=== PATIENT | female | born 1950 | race Caucasian/White ===

== ENCOUNTER 2024-03-13 21:29 | Inpatient (IN) ==
[2024-03-13 21:57] LABS: Basophils # (auto) 0.05 K/uL (0.00-0.20); Basophils % (auto) 0.7 %; Eosinophils # (auto) 0.12 K/uL (0.00-0.50); Eosinophils % (auto) 1.6 %; Hematocrit (blood only) 35.4 % (37.0-47.0); Hemoglobin 11.4 g/dl (12.0-16.0); Immature Granulocytes # (auto) 0.04 K/uL (0.01-0.20); Immature Granulocytes % (auto) 0.5 %; Lymphocytes % (auto) 32.3 %; Mean Corpuscular Hemoglobin 32.3 pg (25.0-34.0); Mean Corpuscular Hgb Conc 32.2 g/dL (32.0-36.0); Mean Corpuscular Volume 100.3 fL (80.0-100.0); Mean Platelet Volume 9.8 fL (9.4-12.4); Monocytes # (auto) 0.94 K/uL (0.11-0.59); Monocytes % (auto) 12.7 %; Neutrophils # (auto) 3.87 K/uL (1.40-6.50); Neutrophils % (auto) 52.2 %; Platelet Count 418 K/uL (130-400); RDW Coefficient of Variation 13.5 % (11.5-14.5); RDW Standard Deviation 49.5 fL (36.4-46.3); Red Blood Count 3.53 M/uL (4.20-5.40); White Blood Count 7.42 K/ul (4.8-10.8)
[2024-03-13 22:21] LABS: Albumin Globulin Ratio 1.4 (0.9-2); Albumin Level 4.2 gm/dl (3.4-5.0); BUN Creatinine Ratio 12.7 (10-20); Bilirubin,Total 1.1 mg/dl (0.2-1.0); Calcium 9.8 mg/dl (8.6-10.3); Creatinine Clr Calc Pharmacy 53.9 ml/min; Est GFR (African American) 85.5 ml/min; Est GFR (Non-African American) 73.7 ml/min; Potassium 4.1 mmol/L (3.5-5.1); Total Protein 7.2 gm/dl (6.0-8.3)
[2024-03-13 22:26] LABS: INR 0.9 (0.9-1.1); Partial Thromboplastin Ratio 0.9; Partial Thromboplastin Time 24 Seconds (21-31); Prothrombin Time 10.4 Seconds (9.0-12.0)
[2024-03-13 22:27] LABS: Troponin I High Sensitivity 5.5 pg/ml (0-14)
[2024-03-13 22:46] LABS: Adenovirus PCR Not Detected (NotDetected); Bordetella parapertussis PCR Not Detected (NotDetected); Bordetella pertussis PCR Not Detected (NotDetected); Chlamydia pneumoniae PCR Not Detected (NotDetected); Coronavirus 229E PCR Not Detected (NotDetected); Coronavirus CoV-2 (COVID19)PCR Not Detected (NotDetected); Coronavirus HKU1 PCR Not Detected (NotDetected); Coronavirus NL63 PCR Not Detected (NotDetected); Coronavirus OC43PCR Not Detected (NotDetected); Human Metapneumovirus PCR Not Detected (NotDetected); Influenza A PCR Not Detected (NotDetected); Influenza B PCR Not Detected (NotDetected); Mycoplasma pneumoniae PCR Not Detected (NotDetected); Parainfluenza Virus 1 PCR Not Detected (NotDetected); Parainfluenza Virus 2 PCR Not Detected (NotDetected); Parainfluenza Virus 3 PCR Not Detected (NotDetected); Parainfluenza Virus 4 PCR Not Detected (NotDetected); Respiratory Syncytial VirusPCR Not Detected (NotDetected); Rhinovirus/Enterovirus PCR Not Detected (NotDetected)
[2024-03-13 22:48] LABS: Magnesium 2.1 mg/dl (1.7-2.4)
[2024-03-13 23:04] LABS: Thyroid Stimulating Hormone 3.51 uIu/ml (0.300-4.500)
--- NOTE | 2024-03-13 23:06 | Emergency Department Note ---
History of Present Illness General Chief complaint: Illness Stated complaint: SOB,SWEATS,NAUSEA,HYPOTENSION,CHEST TIGHTNESS Time Seen by Provider: 03/13/24 22:07 History of Present Illness This 73-year-old female presents ER complaining of unintentional weight loss, dyspnea with minimal exertion and not feeling well for the past few months steadily getting worse. No history of heart failure. She follows with Dr. Vargas. Patient denies fever, chills, cough, congestion, leg pain or swelling. Home Medications Medication Instructions Recorded Confirmed Type clotrimazole-betamethasone 1 1 applic topical BID PRN Skin 12/15/21 03/13/24 History %-0.05 % topical cream Irritation cyclobenzaprine 5 mg tablet 5 mg PO TID PRN MUSCLE SPASMS 12/15/21 03/13/24 History duloxetine 60 mg capsule,delayed 60 mg PO DAILY 12/15/21 03/13/24 History release oxycodone 5 mg tablet 5 mg PO Q6H PRN Back Pain 12/15/21 03/13/24 History valacyclovir 1 gram tablet 1,000 mg PO TID PRN Cold Sores 12/15/21 03/13/24 History amlodipine 5 mg-olmesartan 20 mg 1 tab PO DAILY #90 tabs 02/15/23 03/13/24 Rx tablet metoprolol succinate 100 mg 100 mg PO DAILY #90 tabs 03/22/23 03/13/24 Rx tablet,extended release 24 hr cholecalciferol (vitamin D3) 25 25 mcg PO DAILY 03/13/24 03/13/24 History mcg (1,000 unit) capsule (Vitamin D3) cyanocobalamin (vitamin B-12) 1,000 mcg PO DAILY 03/13/24 03/13/24 History 1,000 mcg tablet (Vitamin B-12) Allergies Allergy/AdvReac Type Severity Reaction Status Date / Time haemophilus b polysac Allergy Intermediate FLU-LIKE Verified 03/13/24 23:13 conj-tetanus SYMPTOMS Penicillins Allergy Intermediate FLU-LIKE Verified 03/13/24 23:13 SYMPTOMS ranitidine [From Zantac] AdvReac Severe RESPIRATORY Verified 03/13/24 23:13 FAILURE/CARDIAC ARREST Past Med/Surg History Medical History Hyperlipidemia 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 Primary hypertension Hypothyroidism Social History Smoking Status: Former smoker Feels Safe at Home: Yes Review of Systems A total of 10 systems reviewed and were otherwise negative Physical Exam Vital Signs Vital Signs - 24 hr 03/13/24 21:30 03/13/24 21:59 03/13/24 21:59 Temperature 36.4 C L Temperature Source Temporal Artery Scan Pulse Rate 70 Pulse Rate [Right Radial] 58 L Pulse Rhythm Regular Pulse Rhythm [Right Radial] Pulse Strength Normal Pulse Strength [Right Radial] Respiratory Rate 20 18 Respiratory Effort / Characteristics Non-Labored Spontaneous Respiratory Depth Normal Respiratory Pattern Blood Pressure 155/78 H Blood Pressure [Left Arm] 173/96 H Blood Pressure Mean 103 Blood Pressure Mean [Left Arm] 121 Blood Pressure Position [Left Arm] Pulse Oximetry 92 94 94 Oxygen Delivery Method Room Air Room Air Room Air Sepsis Recent Fever Within 48 Hours No Sepsis New/Unexplained Change in Mental Status N/A Sepsis Action Taken by Nursing No Action Required 03/13/24 21:59 03/13/24 22:09 03/13/24 23:00 Temperature Temperature Source Pulse Rate 58 L 60 Pulse Rate [Right Radial] 67 Pulse Rhythm Pulse Rhythm [Right Radial] Regular Pulse Strength Pulse Strength [Right Radial] Normal Respiratory Rate 20 Respiratory Effort / Characteristics Non-Labored Spontaneous Respiratory Depth Normal Respiratory Pattern Regular Blood Pressure Blood Pressure [Left Arm] 143/70 H Blood Pressure Mean Blood Pressure Mean [Left Arm] 94 Blood Pressure Position [Left Arm] Pulse Oximetry 94 99 Oxygen Delivery Method Room Air Room Air Sepsis Recent Fever Within 48 Hours Sepsis New/Unexplained Change in Mental Status Sepsis Action Taken by Nursing 03/14/24 01:00 03/14/24 02:08 Temperature Temperature Source Pulse Rate 70 Pulse Rate [Right Radial] 69 Pulse Rhythm Pulse Rhythm [Right Radial] Regular Pulse Strength Pulse Strength [Right Radial] Normal Respiratory Rate 18 Respiratory Effort / Characteristics Non-Labored Spontaneous Respiratory Depth Normal Respiratory Pattern Regular Blood Pressure Blood Pressure [Left Arm] 146/74 H Blood Pressure Mean Blood Pressure Mean [Left Arm] 98 Blood Pressure Position [Left Arm] Lying Pulse Oximetry 93 Oxygen Delivery Method Room Air Sepsis Recent Fever Within 48 Hours Sepsis New/Unexplained Change in Mental Status Sepsis Action Taken by Nursing VITALS: Vitals are noted on the nurse's note and reviewed by myself. Vital signs stable. GENERAL: Pleasant elderly female, in no acute distress, nondiaphoretic, well- developed well-nourished. SKIN: Capillary reflex less than 2 seconds. HEENT: Normocephalic. PERRLA. EOMI. Nares patent. Mucous membranes moist. Neck is supple without nuchal rigidity. HEART: Regular rate and rhythm LUNGS: Clear to auscultation bilaterally without wheezes, rales or rhonchi. No retractions or accessory muscle use. ABDOMEN: Positive bowel sounds x 4. Normal tympanic percussion. Soft, nontender, without masses or organomegaly. Bustos sign negative. No guarding or rebound tenderness. no CVA tenderness MUSCULOSKELETAL: No gross musculoskeletal defects. NEURO: Patient was alert and oriented to person place and time. No focal neurological deficits. Course Administered Medications Discontinued Medications Albuterol (Albut/Ipratrop 3mg/0.5mg Neb 3 Ml Vial) 3 ml NEB NOW STA; Protocol Stop: 03/13/24 22:25 Last Admin: 03/13/24 23:46 Dose: 3 ml Documented By: SIGRID Dexamethasone (Dexamethasone Sod Inj 4 Mg/Ml Vial) 6 mg IV NOW STA Stop: 03/14/24 01:42 Last Admin: 03/14/24 02:07 Dose: 6 mg Documented By: SIGRID Furosemide (Furosemide 40 Mg/4 Ml Vial) 40 mg IV ONE ONE Stop: 03/13/24 23:39 Last Admin: 03/13/24 23:47 Dose: 40 mg Documented By: SIGRID Ceftriaxone Sodium (Rocephin) 1,000 mg in 50 mls @ 100 mls/hr IV NOW STA Stop: 03/14/24 01:23 Last Infusion: 03/14/24 01:40 Dose: Infused Documented By: Admin: 03/14/24 01:09 Dose: 100 mls/hr Documented By: SIGRID Ioversol (Optiray 320 125ml) 125 ml IV ONCE ONE Stop: 03/13/24 23:20 Last Admin: 03/13/24 23:19 Dose: 119 ml Documented By: FADUMO Medical Decision Making Medical Records Attestation: I reviewed the patient's medical records. Home Medications Current Medication List: was personally reviewed by me Laboratory Data Attestation: I reviewed the patient's lab results. 03/13/24 21:39 03/13/24 21:39 Lab Results 03/13/24 03/13/24 03/14/24 Range/Units 21:39 23:40 00:53 WBC 7.42 (4.8-10.8) K/ul RBC 3.53 L (4.20-5.40) M/uL Hgb 11.4 L (12.0-16.0) g/dl Hct 35.4 L (37.0-47.0) % MCV 100.3 H (80.0-100.0) fL MCH 32.3 (25.0-34.0) pg MCHC 32.2 (32.0-36.0) g/dL RDW Std Deviation 49.5 H (36.4-46.3) fL RDW Coeff of Anibal 13.5 (11.5-14.5) % Plt Count 418 H (130-400) K/uL MPV 9.8 (9.4-12.4) fL Immature Gran % (Auto) 0.5 % Neut % (Auto) 52.2 % Lymph % (Auto) 32.3 % [facility] % (Auto) 12.7 % Eos % (Auto) 1.6 % Baso % (Auto) 0.7 % Neut # (Auto) 3.87 (1.40-6.50) K/uL Lymph # (Auto) 2.40 (1.20-3.40) K/uL [facility] # (Auto) 0.94 H (0.11-0.59) K/uL Eos # (Auto) 0.12 (0.00-0.50) K/uL Baso # (Auto) 0.05 (0.00-0.20) K/uL Immature Gran # (Auto) 0.04 (0.01-0.20) K/uL PT 10.4 (9.0-12.0) Seconds INR 0.9 (0.9-1.1) APTT 24 (21-31) Seconds PTT Ratio 0.9 Sodium 138 (136-145) mmol/L Potassium 4.1 (3.5-5.1) mmol/L Chloride 102 (98-107) mmol/L Carbon Dioxide 31 (21-32) mmol/L Anion Gap 5 (3-11) BUN 10 (6-23) mg/dl Creatinine 0.79 (0.6-1.2) mg/dl Est Cr Clr Drug Dosing 53.9 ml/min Est GFR ( Amer) 85.5 ml/min Est GFR (Non-Af Amer) 73.7 ml/min BUN/Creatinine Ratio 12.7 (10-20) Glucose 100 H (70-99(Fasting)) mg/dl Calcium 9.8 (8.6-10.3) mg/dl Magnesium 2.1 (1.7-2.4) mg/dl Total Bilirubin 1.1 H (0.2-1.0) mg/dl AST 17 (13-39) U/L ALT 11 (7-52) U/L Alkaline Phosphatase 80 (34-104) U/L Troponin I High Sens 5.5 5.0 (0-14) pg/ml B-Natriuretic Peptide 152 H (0-100) pg/ml Total Protein 7.2 (6.0-8.3) gm/dl Albumin 4.2 (3.4-5.0) gm/dl Globulin 3.0 (2.5-4.0) gm/dl Albumin/Globulin Ratio 1.4 (0.9-2) TSH 3.510 (0.300-4.500) uIu/ml Urine Color Yellow Urine Appearance Cloudy A (Clear) Urine pH 6.5 (4.5-7.5) Ur Specific [place] > 1.045 H (1.000-1.030) Urine Protein Trace H (Negative) Urine Glucose (UA) Negative (Negative) Urine Ketones Negative (Negative) Urine Blood Negative (Negative) Urine Nitrite Negative (Negative) Urine Bilirubin Negative (Negative) Urine Urobilinogen Negative (Negative) Ur Leukocyte Esterase 1+ H (Negative) Urine WBC (Auto) 21-50 H (0-5) /hpf Urine RBC (Auto) 0-2 (0-2) /hpf U Hyaline Cast (Auto) 0-2 (0-2) /lpf U Epithel Cells (Auto) >20 H (0-2) /hpf Urine Bacteria (Auto) 3+ H (None Seen) Adenovirus (PCR) Not Detected (NotDetected) B. pertussis DNA (PCR) Not Detected (NotDetected) B.parapertussis DNA PCR Not Detected (NotDetected) C. pneumoniae DNA (PCR) Not Detected (NotDetected) Coronavirus OC43 (PCR) Not Detected (NotDetected) Coronavirus HKU1 (PCR) Not Detected (NotDetected) Coronavirus 229E (PCR) Not Detected (NotDetected) SARS-CoV-2 (PCR) Not Detected (NotDetected) Coronavirus NL63 (PCR) Not Detected (NotDetected) Human Metapneumovir PCR Not Detected (NotDetected) Influenza Type A (PCR) Not Detected (NotDetected) Influenza Type B (PCR) Not Detected (NotDetected) M. pneumoniae (PCR) Not Detected (NotDetected) Parainfluenza 1 (PCR) Not Detected (NotDetected) Parainfluenza 2 (PCR) Not Detected (NotDetected) Parainfluenza 3 (PCR) Not Detected (NotDetected) Parainfluenza 4 (PCR) Not Detected (NotDetected) RSV (PCR) Not Detected (NotDetected) Entero/Rhino (PCR) Not Detected (NotDetected) Imaging Data Attestation: I personally reviewed and interpreted this imaging study as follows: Radiologist's Impression: Abdomen/Pelvis CT 03/13/24 22:24 Exam(s): CT ABDOMEN + PELVIS With Contrast IV Amt: 119 ML OPTIRAY 320 EXAM: CT Abdomen and Pelvis With Intravenous Contrast CLINICAL HISTORY: Reason for exam: mid abd pain, unintentional wt loss. TECHNIQUE: Axial computed tomography images of the abdomen and pelvis with intravenous contrast. CTDI is 28.14 mGy and DLP is 1345.04 mGy-cm. Automated exposure control was utilized for the study. A dose lowering technique was utilized adhering to the principles of ALARA. CONTRAST: Patient received 119 ML OPTIRAY 320 of IV contrast COMPARISON: No relevant prior studies available. FINDINGS: Lung bases: Unremarkable. No mass. No consolidation. ABDOMEN: Liver: The liver is enlarged measuring 20 cm craniocaudad. No focal liver lesion is seen. Gallbladder and bile ducts: Unremarkable. No calcified stones. No ductal dilation. Pancreas: Unremarkable. No mass. No ductal dilation. Spleen: Unremarkable. No splenomegaly. Adrenals: Unremarkable. No mass. Kidneys and ureters: 4.3 cm simple cyst in the superior pole of the right kidney. No follow-up is required. No hydronephrosis. Stomach and bowel: See below. PELVIS: Appendix: The appendix is normal. Bowel loops are nondilated. There is diverticulosis of the left and sigmoid colon without evidence of acute diverticulitis. No acute inflammatory changes are seen involving the bowel. Bladder: The urinary bladder is decompressed and unremarkable. Reproductive: Unremarkable as visualized. ABDOMEN and PELVIS: Intraperitoneal space: The uterus has been removed. No free fluid is seen in the pelvis. No free air. Bones/joints: Mild degenerative changes throughout the spine. No acute fracture or subluxation is seen. Previous laminectomy is noted at L2-3, L3-4, and L4-5. Soft tissues: Unremarkable. 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 50% stenosis of the origin of the superior mesenteric artery. The infrarenal abdominal aorta is heavily calcified but nondilated. The inferior mesenteric artery is widely patent. Lymph nodes: Unremarkable. No enlarged lymph nodes. IMPRESSION: The appendix is normal. Bowel loops are nondilated. There is diverticulosis of the left and sigmoid colon without evidence of acute diverticulitis. No acute inflammatory changes are seen involving the bowel. The abdominal aorta is heavily calcified but nondilated. There is no aneurysm or dissection. 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 The inferior mesenteric artery is widely patent. Electronically signed by: Jesus Manuel Hernandez MD 03/14/24 00:23 AM Chest CTA 03/13/24 22:24 Exam(s): CTA CHEST IV Amt: 119 ML OPTIRAY 320 EXAM: CT Angiography Chest With Intravenous Contrast CLINICAL HISTORY: Reason for exam: PE. TECHNIQUE: Axial computed tomographic angiography images of the chest with intravenous contrast. CTDI is 28.02 mGy and DLP is 827.73 mGy-cm. Automated exposure control was utilized for the study. A dose lowering technique was utilized adhering to the principles of ALARA. MIP reconstructed images were created and reviewed. COMPARISON: No relevant prior studies available. FINDINGS: Pulmonary arteries: The pulmonary arterial tree is well opacified with contrast. No pulmonary embolism is identified. Aorta: The thoracic aorta is heavily calcified but nondilated. There is no aneurysm or dissection. Lungs: Scattered areas of hazy groundglass increased density throughout the central lungs bilaterally. There is pulmonary vascular congestion. Consider pulmonary edema/CHF. Mild central bronchial wall thickening suggests some component of bronchitis and/or underlying emphysema. No lobar consolidation is seen. Pleural space: Unremarkable. No significant effusion. No pneumothorax. Heart: The heart is mildly enlarged. No pericardial effusion is seen. No evidence of RV dysfunction. Bones/joints: Mild multilevel degenerative changes throughout the spine. No acute fracture or destructive bone lesion is seen. No dislocation. Soft tissues: Unremarkable. Lymph nodes: Unremarkable. No enlarged lymph nodes. Upper abdomen: 5 cm elevation of the right hemidiaphragm. IMPRESSION: 1. Scattered areas of hazy groundglass increased density throughout the central lungs bilaterally. There is pulmonary vascular congestion. Consider pulmonary edema/CHF. 2. Mild central bronchial wall thickening suggests some component of bronchitis and/or underlying emphysema. No lobar consolidation is seen. 3. The thoracic aorta is heavily calcified but nondilated. There is no aneurysm or dissection. 4. The pulmonary arterial tree is well opacified with contrast. No pulmonary embolism is identified. 5. The heart is mildly enlarged. No pericardial effusion is seen. Electronically signed by: Jesus Manuel Hernandez MD 03/14/24 00:29 AM MDM Narrative Prior records/ancillary studies reviewed and summarized above. Nursing notes reviewed. Additional history obtained from family. The patient's history was concerning for increasing shortness of breath, weakness, unintentional weight loss. Differential diagnosis: Etiologies such as heart failure, cancer, metabolic, infection, hypo/hyperglycemia, electrolyte abnormalities, cardiac sources, intracerebral event, toxicologic, neurologic, as well as others were entertained. Physical examination: As above. ER treatment provided: IV Lock An order was placed for continuous cardiac monitoring. The monitor shows a rate of 60-100 with a sinus rhythm per my interpretation. Nebulizer, Lasix, Rocephin On reassessment the patient felt better. Diagnostics interpretation by me: ECG: Ordered for weakness EKG: Normal sinus, normal intervals, no acute ST changes, T wave version aVL, rate of 66. Impression normal sinus rhythm independently interpreted by myself The labs Independently Interpreted by myself revealed mild anemia, euthyroid, negative troponin, negative [employer] Elevated BNP Imaging studies: Checks x-ray concerning for pulmonary congestion per my independent interpretation CTs as above Consultation: A consultation was placed with the hospitalist. The case was discussed and diagnostics were reviewed. The patient was evaluated in the ER for further treatment. Exam and history seem consistent with new onset heart failure. Patient is given Lasix. Urine appeared infected and patient was started antibiotics. Urine culture was placed. Patient is been having increasing more shortness of breath with minimal exertion. Medicine was consulted and the case was discussed. She will be evaluated for admission. Patient is agreeable. By the evaluation outlined above emergent etiologies such as electrolyte abnormalities, intracerebral event, toxologic, neurologic, abnormalities blood glucose, metabolic, as well as others were deemed relatively unlikely. The pt informed about the findings as listed above. All questions were answered and pleased with the treatment. The chart was completed utilizing [employer] voice recognition software. Grammatical errors, random word insertions, pronoun errors, and incomplete sentences are an occassional consequence of this system due to software limitations, ambient noise, and hardware issues. Any formal questions or concerns about the content, text, or information contained within the body of this dictation should be directly addressed to the physician social science research assistant for clarification. Impression & Plan New onset of congestive heart failure, Acute UTI Discharge Plan Visit Data Chief Complaint: Illness Stated Complaint: SOB,SWEATS,NAUSEA,HYPOTENSION,CHEST TIGHTNESS ED Provider: Benigno Ness ED Midlevel Provider: Ashanti Gale Discharge Problem: New onset of congestive heart failure, Acute UTI Patient Disposition: Admitted As Inpatient Condition: Good Forms Stand Alone Forms: FREEjit Prescriptions Prescriptions: No Action metoprolol succinate 100 mg tablet extended release 24 hr 100 mg PO DAILY Qty: 90 3RF clotrimazole-betamethasone 1-0.05 % cream 1 applic topical BID PRN (Reason: Skin Irritation) cyclobenzaprine 5 mg tablet 5 mg PO TID PRN (Reason: MUSCLE SPASMS) duloxetine 60 mg capsule,delayed release(DR/EC) 60 mg PO DAILY oxycodone 5 mg tablet 5 mg PO Q6H PRN (Reason: Back Pain) valacyclovir 1 gram tablet 1,000 mg PO TID PRN (Reason: Cold Sores) amlodipine-olmesartan 5-20 mg tablet 1 tab PO DAILY Qty: 90 3RF cyanocobalamin (vitamin B-12) [Vitamin B-12] 1,000 mcg Tablet 1,000 mcg PO DAILY cholecalciferol (vitamin D3) [Vitamin D3] 25 mcg (1,000 unit) Capsule 25 mcg PO DAILY Referrals Referrals: Riki Mitchell DO [Outside Practitioners] -
[2024-03-13] MEDS: OPTIRAY 320 125ml IV ONE (23:19)
[2024-03-13] MEDS: ALBUT/IPRATROP 3MG/0.5MG NEB 3 ML VIAL NEB STA (23:46)
[2024-03-13] MEDS: FUROSEMIDE 40 MG/4 ML VIAL IV ONE (23:47)
--- NOTE | 2024-03-14 00:24 | CT Scan Report ---
Exam(s): CT ABDOMEN + PELVIS With Contrast IV Amt: 119 ML OPTIRAY 320 EXAM: CT Abdomen and Pelvis With Intravenous Contrast CLINICAL HISTORY: Reason for exam: mid abd pain, unintentional wt loss. TECHNIQUE: Axial computed tomography images of the abdomen and pelvis with intravenous contrast. CTDI is 28.14 mGy and DLP is 1345.04 mGy-cm. Automated exposure control was utilized for the study. A dose lowering technique was utilized adhering to the principles of ALARA. CONTRAST: Patient received 119 ML OPTIRAY 320 of IV contrast COMPARISON: No relevant prior studies available. FINDINGS: Lung bases: Unremarkable. No mass. No consolidation. ABDOMEN: Liver: The liver is enlarged measuring 20 cm craniocaudad. No focal liver lesion is seen. Gallbladder and bile ducts: Unremarkable. No calcified stones. No ductal dilation. Pancreas: Unremarkable. No mass. No ductal dilation. Spleen: Unremarkable. No splenomegaly. Adrenals: Unremarkable. No mass. Kidneys and ureters: 4.3 cm simple cyst in the superior pole of the right kidney. No follow-up is required. No hydronephrosis. Stomach and bowel: See below. PELVIS: Appendix: The appendix is normal. Bowel loops are nondilated. There is diverticulosis of the left and sigmoid colon without evidence of acute diverticulitis. No acute inflammatory changes are seen involving the bowel. Bladder: The urinary bladder is decompressed and unremarkable. Reproductive: Unremarkable as visualized. ABDOMEN and PELVIS: Intraperitoneal space: The uterus has been removed. No free fluid is seen in the pelvis. No free air. Bones/joints: Mild degenerative changes throughout the spine. No acute fracture or subluxation is seen. Previous laminectomy is noted at L2-3, L3-4, and L4-5. Soft tissues: Unremarkable. 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 50% stenosis of the origin of the superior mesenteric artery. The infrarenal abdominal aorta is heavily calcified but nondilated. The inferior mesenteric artery is widely patent. Lymph nodes: Unremarkable. No enlarged lymph nodes. IMPRESSION: The appendix is normal. Bowel loops are nondilated. There is diverticulosis of the left and sigmoid colon without evidence of acute diverticulitis. No acute inflammatory changes are seen involving the bowel. The abdominal aorta is heavily calcified but nondilated. There is no aneurysm or dissection. 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 The inferior mesenteric artery is widely patent. Electronically signed by: Jesus Manuel Hernandez MD 03/14/24 00:23 AM
--- NOTE | 2024-03-14 00:29 | CT Scan Report ---
Exam(s): CTA CHEST IV Amt: 119 ML OPTIRAY 320 EXAM: CT Angiography Chest With Intravenous Contrast CLINICAL HISTORY: Reason for exam: PE. TECHNIQUE: Axial computed tomographic angiography images of the chest with intravenous contrast. CTDI is 28.02 mGy and DLP is 827.73 mGy-cm. Automated exposure control was utilized for the study. A dose lowering technique was utilized adhering to the principles of ALARA. MIP reconstructed images were created and reviewed. COMPARISON: No relevant prior studies available. FINDINGS: Pulmonary arteries: The pulmonary arterial tree is well opacified with contrast. No pulmonary embolism is identified. Aorta: The thoracic aorta is heavily calcified but nondilated. There is no aneurysm or dissection. Lungs: Scattered areas of hazy groundglass increased density throughout the central lungs bilaterally. There is pulmonary vascular congestion. Consider pulmonary edema/CHF. Mild central bronchial wall thickening suggests some component of bronchitis and/or underlying emphysema. No lobar consolidation is seen. Pleural space: Unremarkable. No significant effusion. No pneumothorax. Heart: The heart is mildly enlarged. No pericardial effusion is seen. No evidence of RV dysfunction. Bones/joints: Mild multilevel degenerative changes throughout the spine. No acute fracture or destructive bone lesion is seen. No dislocation. Soft tissues: Unremarkable. Lymph nodes: Unremarkable. No enlarged lymph nodes. Upper abdomen: 5 cm elevation of the right hemidiaphragm. IMPRESSION: 1. Scattered areas of hazy groundglass increased density throughout the central lungs bilaterally. There is pulmonary vascular congestion. Consider pulmonary edema/CHF. 2. Mild central bronchial wall thickening suggests some component of bronchitis and/or underlying emphysema. No lobar consolidation is seen. 3. The thoracic aorta is heavily calcified but nondilated. There is no aneurysm or dissection. 4. The pulmonary arterial tree is well opacified with contrast. No pulmonary embolism is identified. 5. The heart is mildly enlarged. No pericardial effusion is seen. Electronically signed by: Jesus Manuel Hernandez MD 03/14/24 00:29 AM
[2024-03-14 00:34] LABS: Appearance Urine Cloudy (Clear); Bacteria Urine Automated 3+ (None Seen); Bilirubin Urine Negative (Negative); Blood Urine Negative (Negative); Cast Urine Automated 0-2 /lpf (0-2); Color Urine Yellow; Epithelial Cell Urine Auto >20 /hpf (0-2); Glucose Urine UA Negative (Negative); Ketones Urine Negative (Negative); Leukocyte Esterase Urine 1+ (Negative); Nitrite Urine Negative (Negative); Protein Urine Trace (Negative); RBC Urine Automated 0-2 /hpf (0-2); Specific Gravity Urine > 1.045 (1.000-1.030); Urobilinogen Urine Negative (Negative); WBC Urine Automated 21-50 /hpf (0-5); pH Urine 6.5 (4.5-7.5)
[2024-03-14] MEDS: cefTRIAXone SODIUM 1,000 MG/50 ML BAG IV STA (01:09)
[2024-03-14] MEDS ORDERED: ALBUT/IPRATROP 3MG/0.5MG NEB 3 ML VIAL NEB PRN (01:41)
--- NOTE | 2024-03-14 01:45 | History & Physical Report ---
Date of Service March 14, 2024 Assessment & Plan (1) Dyspnea on exertion: (2) New onset of congestive heart failure: (3) Bronchitis: (4) Acute UTI: (5) Hypertension: (6) Hyperlipidemia: Plan Dyspnea on exertion/new onset CHF/bronchitis/history of COVID 19 7 weeks ago- Clinically patient looks reasonably good New onset CHF/hypertension- The patient will be admitted to telemetry for serial cardiac enzymes, serial EKG's, cardiac rhythm monitoring and a 2-D echocardiogram with Dopplers. Patient received furosemide 40 mg IV x 1 in the ED Hold on any further doses of furosemide Initial troponin 5.5, follow-up 5.0 Most recent dobutamine stress echo on 08/27/2022, with ejection fraction 65% Continue metoprolol succinate 100 mg daily, and amlodipine-on losartan 04/17, 1 p.o. daily Bronchitis/history of COVID-19- Reports being positive for COVID-19 about 7 weeks ago, which would coincide with gradually worsening shortness of breath and dyspnea on exertion BioFire test negative Give dexamethasone 6 mg IV now, then 4 mg IV every morning and follow response DuoNebs every 2 hours as needed Urinary tract infection- Follow urine culture and sensitivity Empiric ceftriaxone IV History of Present Illness Chief Complaint: The patient presents to the emergency department with a few months of gradually worsening shortness of breath and dyspnea on exertion, with variable weight loss and then weight gain, without change in diet or exercise pattern, all of which have worsened over the past few days Primary Care Provider: Jurgen Garrett DO The patient is a 73-year-old female with a past medical history including history of kidney stones, renal lesion, family history of CAD, chest pain syndrome, dyspnea exertion, lower extremity edema, hyperlipidemia, hypertension, muscle spasms, chronic back pain syndrome and cold sores. The patient presents to the emergency department symptoms as noted above. Patient does report having had a COVID 19 infection about 7 weeks ago. Allergies Allergy/AdvReac Type Severity Reaction Status Date / Time haemophilus b polysac Allergy Intermediate FLU-LIKE Verified 03/13/24 23:13 conj-tetanus SYMPTOMS Penicillins Allergy Intermediate FLU-LIKE Verified 03/13/24 23:13 SYMPTOMS ranitidine [From Zantac] AdvReac Severe RESPIRATORY Verified 03/13/24 23:13 FAILURE/CARDIAC ARREST Home Medications Medication Instructions Recorded Confirmed Type clotrimazole-betamethasone 1 1 applic topical BID PRN Skin 12/15/21 03/13/24 History %-0.05 % topical cream Irritation cyclobenzaprine 5 mg tablet 5 mg PO TID PRN MUSCLE SPASMS 12/15/21 03/13/24 History duloxetine 60 mg capsule,delayed 60 mg PO DAILY 12/15/21 03/13/24 History release oxycodone 5 mg tablet 5 mg PO Q6H PRN Back Pain 12/15/21 03/13/24 History valacyclovir 1 gram tablet 1,000 mg PO TID PRN Cold Sores 12/15/21 03/13/24 History amlodipine 5 mg-olmesartan 20 mg 1 tab PO DAILY #90 tabs 02/15/23 03/13/24 Rx tablet metoprolol succinate 100 mg 100 mg PO DAILY #90 tabs 03/22/23 03/13/24 Rx tablet,extended release 24 hr cholecalciferol (vitamin D3) 25 25 mcg PO DAILY 03/13/24 03/13/24 History mcg (1,000 unit) capsule (Vitamin D3) cyanocobalamin (vitamin B-12) 1,000 mcg PO DAILY 03/13/24 03/13/24 History 1,000 mcg tablet (Vitamin B-12) Past Med/Surg History Medical History Hyperlipidemia 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 Primary hypertension Hypothyroidism Social History Smoking Status: Former smoker Feels Safe at Home: Yes Review of Systems Review of Systems: The patient denies chest pain, palpitations, cough, lower extremity swelling, sore throat, fevers, chills, sweats, nausea, vomiting, diarrhea , constipation, abdominal pain, pelvic pain, blood in urine or stool, dysuria, urinary frequency or urgency, lightheadedness, dizziness, headache, memory loss, loss of consciousness, rash, abnormal bruising or bleeding, imbalance, focal weakness, numbness or tingling in arms or legs, generalized arthralgias or myalgias, back or neck pain, or night sweats. The review of systems is otherwise negative other than for that already noted above, and at least 10 systems have been reviewed. Physical Exam Physical Exam: The patient is awake, alert and oriented 3, well developed and well nourished, normocephalic and atraumatic, lying in bed and in no acute distress. HEENT--PERRL, EOMI, mucous membranes and oropharynx normal Neck--supple. No JVD. No bruits. Thyroid normal, trachea midline, no adenopathy. Heart--normal S1 and S2. No murmurs, rubs or gallops. Lungs--coarse breath sounds bilaterally, no respiratory distress, no accessory muscle use. Abdomen--normal bowel sounds and soft. Nontender. Nondistended, no hernias or masses, no organomegaly. Extremities--no cyanosis or clubbing. No edema. Dermatologic--normal skin turgor, normal color, no abnormal lymph nodes, no rash. Neurologic--cranial nerves II through XII grossly intact. Rheumatologic--normal range of motion. Psychiatric--normal affect. Results & Data Results & Data Vital Signs (Past 12 Hours) Vital Signs Temp Pulse Pulse Resp BP BP Pulse Ox 03/13/24 23:00 67 20 143/70 H 99 03/13/24 22:09 60 03/13/24 21:59 58 L 94 03/13/24 21:59 94 03/13/24 21:59 58 L 18 173/96 H 94 03/13/24 21:30 36.4 C L 70 20 155/78 H 92 O2 Del Method 03/13/24 23:00 Room Air 03/13/24 22:09 03/13/24 21:59 Room Air 03/13/24 21:59 Room Air 03/13/24 21:59 Room Air 03/13/24 21:30 Room Air Laboratory Results Laboratory Results WBC 7.42 K/ul (4.8-10.8) 03/13/24 21:39 RBC 3.53 M/uL (4.20-5.40) L 03/13/24 21:39 Hgb 11.4 g/dl (12.0-16.0) L 03/13/24 21:39 Hct 35.4 % (37.0-47.0) L 03/13/24 21:39 MCV 100.3 fL (80.0-100.0) H 03/13/24 21:39 MCH 32.3 pg (25.0-34.0) 03/13/24 21:39 MCHC 32.2 g/dL (32.0-36.0) 03/13/24 21: RDW Std Deviation 49.5 fL (36.4-46.3) H 03/13/24 21:39 RDW Coeff of Anibal 13.5 % (11.5-14.5) 03/13/24 21:39 Plt Count 418 K/uL (130-400) H 03/13/24 21:39 MPV 9.8 fL (9.4-12.4) 03/13/24 21: Immature Gran % (Auto) 0.5 % 03/13/24 21: Neut % (Auto) 52.2 % 03/13/24 21:39 Lymph % (Auto) 32.3 % 03/13/24 21:39 [place] % (Auto) 12.7 % 03/13/24 21:39 Eos % (Auto) 1.6 % 03/13/24 21: Baso % (Auto) 0.7 % 03/13/24 21:39 Neut # (Auto) 3.87 K/uL (1.40-6.50) 03/13/24 21: Lymph # (Auto) 2.40 K/uL (1.20-3.40) 03/13/24 21:39 [place] # (Auto) 0.94 K/uL (0.11-0.59) H 03/13/24 21:39 Eos # (Auto) 0.12 K/uL (0.00-0.50) 03/13/24 21: Baso # (Auto) 0.05 K/uL (0.00-0.20) 03/13/24 21: Immature Gran # (Auto) 0.04 K/uL (0.01-0.20) 03/13/24 21: PT 10.4 Seconds (9.0-12.0) 03/13/24 21:39 INR 0.9 (0.9-1.1) 03/13/24 21:39 APTT 24 Seconds (21-31) 03/13/24 21:39 PTT Ratio 0.9 03/13/24 21: Sodium 136 mmol/L (136-145) 03/14/24 00:53 Potassium 3.8 mmol/L (3.5-5.1) 03/14/24 00:53 Chloride 100 mmol/L (98-107) 03/14/24 00:53 Carbon Dioxide 25 mmol/L (21-32) 03/14/24 00:53 Anion Gap 11 (3-11) 03/14/24 00:53 BUN 10 mg/dl (6-23) 03/14/24 00:53 Creatinine 0.84 mg/dl (0.6-1.2) 03/14/24 00:53 Est Cr Clr Drug Dosing 50.7 ml/min 03/14/24 00:53 Est GFR ( Amer) 79.4 ml/min 03/14/24 00:53 Est GFR (Non-Af Amer) 68.5 ml/min 03/14/24 00:53 BUN/Creatinine Ratio 11.9 (10-20) 03/14/24 00:53 Glucose 121 mg/dl (70-99(Fasting)) H 03/14/24 00:53 Calcium 9.6 mg/dl (8.6-10.3) 03/14/24 00:53 Phosphorus 3.1 mg/dl (2.5-4.9) 03/14/24 00:53 Magnesium 2.1 mg/dl (1.7-2.4) 03/14/24 00:53 Total Bilirubin 1.1 mg/dl (0.2-1.0) H 03/13/24 21:39 AST 17 U/L (13-39) 03/13/24 21:39 ALT 11 U/L (7-52) 03/13/24 21:39 Alkaline Phosphatase 80 U/L (34-104) 03/13/24 21:39 Troponin I High Sens 5.0 pg/ml (0-14) 03/14/24 00:53 B-Natriuretic Peptide 152 pg/ml (0-100) H 03/13/24 21:39 Total Protein 7.2 gm/dl (6.0-8.3) 03/13/24 21:39 Albumin 4.1 gm/dl (3.4-5.0) 03/14/24 00:53 Globulin 3.0 gm/dl (2.5-4.0) 03/13/24 21:39 Albumin/Globulin Ratio 1.4 (0.9-2) 03/13/24 21:39 TSH 3.510 uIu/ml (0.300-4.500) 03/13/24 21:39 Urine Color Yellow 03/13/24 23:40 Urine Appearance Cloudy (Clear) A 03/13/24 23:40 Urine pH 6.5 (4.5-7.5) 03/13/24 23:40 Ur Specific [place] > 1.045 (1.000-1.030) H 03/13/24 23:40 Urine Protein Trace (Negative) H 03/13/24 23:40 Urine Glucose (UA) Negative (Negative) 03/13/24 23:40 Urine Ketones Negative (Negative) 03/13/24 23:40 Urine Blood Negative (Negative) 03/13/24 23:40 Urine Nitrite Negative (Negative) 03/13/24 23:40 Urine Bilirubin Negative (Negative) 03/13/24 23:40 Urine Urobilinogen Negative (Negative) 03/13/24 23:40 Ur Leukocyte Esterase 1+ (Negative) H 03/13/24 23:40 Urine WBC (Auto) 21-50 /hpf (0-5) H 03/13/24 23:40 Urine RBC (Auto) 0-2 /hpf (0-2) 03/13/24 23:40 U Hyaline Cast (Auto) 0-2 /lpf (0-2) 03/13/24 23:40 U Epithel Cells (Auto) >20 /hpf (0-2) H 03/13/24 23:40 Urine Bacteria (Auto) 3+ (None Seen) H 03/13/24 23:40 Adenovirus (PCR) Not Detected (NotDetected) 03/13/24 21:39 B. pertussis DNA (PCR) Not Detected (NotDetected) 03/13/24 21:39 B.parapertussis DNA PCR Not Detected (NotDetected) 03/13/24 21:39 C. pneumoniae DNA (PCR) Not Detected (NotDetected) 03/13/24 21:39 Coronavirus OC43 (PCR) Not Detected (NotDetected) 03/13/24 21:39 Coronavirus HKU1 (PCR) Not Detected (NotDetected) 03/13/24 21:39 Coronavirus 229E (PCR) Not Detected (NotDetected) 03/13/24 21:39 SARS-CoV-2 (PCR) Not Detected (NotDetected) 03/13/24 21:39 Coronavirus NL63 (PCR) Not Detected (NotDetected) 03/13/24 21:39 Human Metapneumovir PCR Not Detected (NotDetected) 03/13/24 21:39 Influenza Type A (PCR) Not Detected (NotDetected) 03/13/24 21:39 Influenza Type B (PCR) Not Detected (NotDetected) 03/13/24 21:39 M. pneumoniae (PCR) Not Detected (NotDetected) 03/13/24 21:39 Parainfluenza 1 (PCR) Not Detected (NotDetected) 03/13/24 21:39 Parainfluenza 2 (PCR) Not Detected (NotDetected) 03/13/24 21:39 Parainfluenza 3 (PCR) Not Detected (NotDetected) 03/13/24 21:39 Parainfluenza 4 (PCR) Not Detected (NotDetected) 03/13/24 21:39 RSV (PCR) Not Detected (NotDetected) 03/13/24 21:39 Entero/Rhino (PCR) Not Detected (NotDetected) 03/13/24 21:39 Impressions Abdomen/Pelvis CT 03/13/24 22:24 Exam(s): CT ABDOMEN + PELVIS With Contrast IV Amt: 119 ML OPTIRAY 320 EXAM: CT Abdomen and Pelvis With Intravenous Contrast CLINICAL HISTORY: Reason for exam: mid abd pain, unintentional wt loss. TECHNIQUE: Axial computed tomography images of the abdomen and pelvis with intravenous contrast. CTDI is 28.14 mGy and DLP is 1345.04 mGy-cm. Automated exposure control was utilized for the study. A dose lowering technique was utilized adhering to the principles of ALARA. CONTRAST: Patient received 119 ML OPTIRAY 320 of IV contrast COMPARISON: No relevant prior studies available. FINDINGS: Lung bases: Unremarkable. No mass. No consolidation. ABDOMEN: Liver: The liver is enlarged measuring 20 cm craniocaudad. No focal liver lesion is seen. Gallbladder and bile ducts: Unremarkable. No calcified stones. No ductal dilation. Pancreas: Unremarkable. No mass. No ductal dilation. Spleen: Unremarkable. No splenomegaly. Adrenals: Unremarkable. No mass. Kidneys and ureters: 4.3 cm simple cyst in the superior pole of the right kidney. No follow-up is required. No hydronephrosis. Stomach and bowel: See below. PELVIS: Appendix: The appendix is normal. Bowel loops are nondilated. There is diverticulosis of the left and sigmoid colon without evidence of acute diverticulitis. No acute inflammatory changes are seen involving the bowel. Bladder: The urinary bladder is decompressed and unremarkable. Reproductive: Unremarkable as visualized. ABDOMEN and PELVIS: Intraperitoneal space: The uterus has been removed. No free fluid is seen in the pelvis. No free air. Bones/joints: Mild degenerative changes throughout the spine. No acute fracture or subluxation is seen. Previous laminectomy is noted at L2-3, L3-4, and L4-5. Soft tissues: Unremarkable. 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 50% stenosis of the origin of the superior mesenteric artery. The infrarenal abdominal aorta is heavily calcified but nondilated. The inferior mesenteric artery is widely patent. Lymph nodes: Unremarkable. No enlarged lymph nodes. IMPRESSION: The appendix is normal. Bowel loops are nondilated. There is diverticulosis of the left and sigmoid colon without evidence of acute diverticulitis. No acute inflammatory changes are seen involving the bowel. The abdominal aorta is heavily calcified but nondilated. There is no aneurysm or dissection. 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 The inferior mesenteric artery is widely patent. Electronically signed by: Jesus Manuel Hernandez MD 03/14/24 00:23 AM Chest CTA 03/13/24 22:24 Exam(s): CTA CHEST IV Amt: 119 ML OPTIRAY 320 EXAM: CT Angiography Chest With Intravenous Contrast CLINICAL HISTORY: Reason for exam: PE. TECHNIQUE: Axial computed tomographic angiography images of the chest with intravenous contrast. CTDI is 28.02 mGy and DLP is 827.73 mGy-cm. Automated exposure control was utilized for the study. A dose lowering technique was utilized adhering to the principles of ALARA. MIP reconstructed images were created and reviewed. COMPARISON: No relevant prior studies available. FINDINGS: Pulmonary arteries: The pulmonary arterial tree is well opacified with contrast. No pulmonary embolism is identified. Aorta: The thoracic aorta is heavily calcified but nondilated. There is no aneurysm or dissection. Lungs: Scattered areas of hazy groundglass increased density throughout the central lungs bilaterally. There is pulmonary vascular congestion. Consider pulmonary edema/CHF. Mild central bronchial wall thickening suggests some component of bronchitis and/or underlying emphysema. No lobar consolidation is seen. Pleural space: Unremarkable. No significant effusion. No pneumothorax. Heart: The heart is mildly enlarged. No pericardial effusion is seen. No evidence of RV dysfunction. Bones/joints: Mild multilevel degenerative changes throughout the spine. No acute fracture or destructive bone lesion is seen. No dislocation. Soft tissues: Unremarkable. Lymph nodes: Unremarkable. No enlarged lymph nodes. Upper abdomen: 5 cm elevation of the right hemidiaphragm. IMPRESSION: 1. Scattered areas of hazy groundglass increased density throughout the central lungs bilaterally. There is pulmonary vascular congestion. Consider pulmonary edema/CHF. 2. Mild central bronchial wall thickening suggests some component of bronchitis and/or underlying emphysema. No lobar consolidation is seen. 3. The thoracic aorta is heavily calcified but nondilated. There is no aneurysm or dissection. 4. The pulmonary arterial tree is well opacified with contrast. No pulmonary embolism is identified. 5. The heart is mildly enlarged. No pericardial effusion is seen. Electronically signed by: Jesus Manuel Hernandez MD 03/14/24 00:29 AM Code Status & VTE Plan Code Status Full code VTE Prophylaxis Plan VTE Prophylaxis will be ordered: Yes PG Care Time/CCT Total # of Minutes Spent Total Time Spent with Patient: Total time spent is greater than 50% in coordination of care (as documented) at patient's floor/unit and/or counseling patient: Coding Level of Care Code 00580 INT INP/OBS CARE 3/75MIN Diagnoses Dyspnea on exertion R06.09 New onset of congestive heart failure I50.9 Bronchitis J40 Acute UTI N39.0 Hypertension I10 Hyperlipidemia E78.5
[2024-03-14] MEDS: DEXAMETHASONE SOD INJ 4 MG/ML VIAL IV STA (02:07)
--- NOTE | 2024-03-14 02:19 | Emergency Department Note ---
ED Visit Note I was consulted by the Advanced Practice Provider. I saw the patient personally and performed a substantive portion of the visit. This includes aspects of the MDM, diagnostic interpretations, and disposition/plan. Patient has CHF on chest imaging. Patient will be admitted. Consultation was made with Dr. Richy Sevilla of the [facility] service. Patient was evaluated in the ER for further management. .
[2024-03-14] MEDS ORDERED: ACETAMINOPHEN 325 MG TAB PO PRN (03:50)
[2024-03-14] MEDS ORDERED: oxyCODONE HCL IR 5 MG TAB (IMMEDIATE RELEASE) PO PRN (03:50)
[2024-03-14] MEDS ORDERED: ONDANSETRON INJ 2 MG/ML 2 ML VIAL IV PRN (03:50)
[2024-03-14] MEDS ORDERED: CLOTRIMAZOLE/BETAMETHASONE CR 15 GM TUBE EXT PRN (03:50)
[2024-03-14 04:31] LABS: Albumin Level 4.1 gm/dl (3.4-5.0); BUN Creatinine Ratio 11.9 (10-20); Calcium 9.6 mg/dl (8.6-10.3); Creatinine Clr Calc Pharmacy 50.7 ml/min; Est GFR (African American) 79.4 ml/min; Est GFR (Non-African American) 68.5 ml/min; Magnesium 2.1 mg/dl (1.7-2.4); Phosphorus 3.1 mg/dl (2.5-4.9); Potassium 3.8 mmol/L (3.5-5.1)
--- NOTE | 2024-03-14 07:48 | XRay Report ---
XR chest 1V not portable HISTORY: Chest pain, nonspecific COMPARISON: None. FINDINGS: No pneumothorax. No pleural effusions. The cardiac a is mildly enlarged. There are calcific ations within the aortic knob. There is mild central pulmonary vascular congestion without overt samanta a. No focal lung consolidations. Mild elevation the right hemidiaphragm. IMPRESSION: Cardiomegaly and mild congestive change. ACT 112: Negative or not required by law. Electronically signed by: Guillermo Cantu M.D. 03/14/2024 7:47 AM
[2024-03-14] MEDS: DULoxetine HCL 60 MG CAP PO SCH (09:00)
[2024-03-14] MEDS: METOPROLOL SUCC 50MG EXT REL TAB PO SCH (09:00)
[2024-03-14] MEDS: CYANOCOBALAMIN (B-12) 500 MCG TABLET PO SCH (09:00)
[2024-03-14] MEDS: LOSARTAN POTASSIUM 50 MG TAB PO SCH (09:00)
[2024-03-14] MEDS: CHOLECALCIFEROL 25 MCG (1000 UNITS) TAB PO SCH (09:00)
[2024-03-14] MEDS: amLODIPine BESYLATE 5 MG TAB PO SCH (09:01)
[2024-03-14] MEDS: HEPARIN SOD 5,000 UNIT/0.5 ML VIAL SQ SCH (09:01)
--- NOTE | 2024-03-14 13:29 | Electrocardiogram Report ---
Test Reason : Blood Pressure : / mmHG Vent. Rate : 066 BPM Atrial Rate : 066 BPM P-R Int : 156 ms QRS Dur : 080 ms QT Int : 414 ms P-R-T Axes : 034 -09 066 degrees QTc Int : 434 ms Normal sinus rhythm Minimal voltage criteria for LVH, may be normal variant Poor R wave progression, consider anterior CA vs. lead placement vs. LVH Abnormal ECG No previous ECGs available Confirmed by Sam Fernandez ([id number]) on 03/14/2024 1:29:43 PM Referred By: REFERRED SELF Confirmed By:Brad Fernandez
--- NOTE | 2024-03-14 15:12 | XCELERA ---
[id number] [id number]
[2024-03-14] MEDS: FUROSEMIDE INJ 20 MG/2 ML VIAL IV SCH (17:38)
[2024-03-14] MEDS: cefTRIAXone SODIUM 1,000 MG in DEXTROSE 5 % MINI-B 50 ML IV SCH (20:22)
[2024-03-14] MEDS: MELATONIN 3 MG TAB PO PRN (22:26)
[2024-03-15 07:48] LABS: Basophils # (auto) 0.02 K/uL (0.00-0.20); Basophils % (auto) 0.2 %; Hematocrit (blood only) 35.5 % (37.0-47.0); Hemoglobin 11.7 g/dl (12.0-16.0); Immature Granulocytes % (auto) 0.9 %; Lymphocytes # (auto) 1.64 K/uL (1.20-3.40); Lymphocytes % (auto) 14.6 %; Mean Corpuscular Hemoglobin 32.8 pg (25.0-34.0); Mean Corpuscular Volume 99.4 fL (80.0-100.0); Mean Platelet Volume 10.4 fL (9.4-12.4); Monocytes # (auto) 0.76 K/uL (0.11-0.59); Monocytes % (auto) 6.7 %; Neutrophils # (auto) 8.75 K/uL (1.40-6.50); Neutrophils % (auto) 77.6 %; Platelet Count 449 K/uL (130-400); RDW Coefficient of Variation 13.2 % (11.5-14.5); RDW Standard Deviation 47.8 fL (36.4-46.3); Red Blood Count 3.57 M/uL (4.20-5.40); White Blood Count 11.27 K/ul (4.8-10.8)
[2024-03-15] MEDS: dexAMETHasone 4 MG in SYRINGE 0 ML IV SCH (08:15)
[2024-03-15 08:58] LABS: Calcium 9.9 mg/dl (8.6-10.3); Potassium 4.4 mmol/L (3.5-5.1)
[2024-03-15 09:03] LABS: Creatinine Clr Calc Pharmacy 53.7 ml/min; Est GFR (African American) 70.2 ml/min; Est GFR (Non-African American) 60.5 ml/min
--- NOTE | 2024-03-15 13:41 | Hospitalist Progress Note ---
Date of Service March 15, 2024 Assessment & Plan (1) Dyspnea on exertion: (2) New onset of congestive heart failure: (3) Bronchitis: (4) Acute UTI: (5) Hypertension: (6) Hyperlipidemia: Plan Dyspnea on exertion/new onset CHF/bronchitis/history of COVID 19 7 weeks ago- Clinically patient looks reasonably good New onset CHF/hypertension- Acute congestive heart failure with preserved ejection fraction and diastolic dysfunction 2D echo showed preserved ejection fraction with grade 1 diastolic dysfunction The patient will be admitted to telemetry for serial cardiac enzymes, serial EKG's, cardiac rhythm monitoring and a 2-D echocardiogram with Dopplers. Currently on IV Lasix 20 mg twice daily Monitor input and output, daily weight Most recent dobutamine stress echo on 08/27/2022, with ejection fraction 65% Continue metoprolol succinate 100 mg daily, and amlodipine-on losartan 04/17, 1 p.o. daily Bronchitis/history of COVID-19- Reports being positive for COVID-19 about 7 weeks ago, which would coincide with gradually worsening shortness of breath and dyspnea on exertion BioFire test negative Give dexamethasone 6 mg IV now, then 4 mg IV every morning and follow response DuoNebs every 2 hours as needed Urinary tract infection- Follow urine culture and sensitivity Empiric ceftriaxone IV Admission and Anticipated Discharge Date Admission Date: March 14, 2024 Subjective Patient seen and examined, states shortness of breath is much improved although still gets some especially when she moves around. Review of Systems Review of Systems: All systems reviewed are negative, apart from the ones contained in the history. Physical Exam Physical Exam: The patient is awake, alert and oriented 3, well developed and well nourished, normocephalic and atraumatic, lying in bed and in no acute distress. HEENT--PERRL, EOMI, mucous membranes and oropharynx mildly dry Neck--supple. No JVD. No bruits. Thyroid normal, trachea midline, no adenopathy. Heart--normal S1 and S2. No murmurs, rubs or gallops. Lungs--clear bilaterally, no respiratory distress, no accessory muscle use. Abdomen--normal bowel sounds and soft. Extremities--no cyanosis or clubbing. No edema. Dermatologic--normal skin turgor, normal color, no abnormal lymph nodes, no rash. Neurologic--cranial nerves II through XII grossly intact. Rheumatologic--normal range of motion. Psychiatric--normal affect. Results & Data Results & Data Vital Signs (Past 12 Hours) Vital Signs Temp Pulse Pulse Resp BP Pulse Ox O2 Del Method 03/15/24 11:36 98.1 F 54 L 17 123/72 95 Room Air 03/15/24 08:27 Room Air 03/15/24 07:03 97.7 F 53 L 17 130/66 98 Nasal Cannula 03/15/24 07:00 58 L 03/15/24 02:41 97.9 F 60 18 127/67 97 Nasal Cannula O2 Flow Rate 03/15/24 11:36 03/15/24 08:27 03/15/24 07:03 1 03/15/24 07:00 03/15/24 02:41 2 PG Care Time/CCT Total # of Minutes Spent Total Time Spent with Patient: Total time spent is greater than 50% in coordination of care (as documented) at patient's floor/unit and/or counseling patient: Coding Level of Care Code 83162 SUB INP/OBS CARE 2/35MIN Diagnoses Dyspnea on exertion R06.09 New onset of congestive heart failure I50.9 Bronchitis J40 Acute UTI N39.0 Hypertension I10 Hyperlipidemia E78.5 Time Spent (min) 35
--- NOTE | 2024-03-15 14:47 | Cardiology Consultation ---
Date of Consultation March 15, 2024 Assessment & Plan (1) Acute on chronic diastolic CHF (congestive heart failure): -improving on intravenous Lasix. -would continue diuretics until BUN and creatinine increase. -continue metoprolol succinate and losartan. -salt restricted diet. -explained concept of daily weights and sliding-scale diuretics to be followed as an outpatient. (2) Hypertension: -adequate control on current regimen. History of Present Illness Attending Physician: Sindhu Rios MD History of Present Illness Mrs. Lorenz is a 73-year-old female admitted yesterday with decompensated diastolic CHF. This consultation was ordered to assist in her management. Of note, patient is well known to me from the outpatient setting. The patient was in her usual state of health until approximately 4 5 months ago. She began to note exertional dyspnea which was slowly progressive. However, over the last week, the patient was becoming short of breath with tasks such as brushing her teeth. She was also experiencing PND and 2 pillow orthopnea. No lower extremity edema or abdominal bloating. The patient admits to compliance with a low-salt diet, however, she does eat canned soups and vegetables and also eats fast food on occasion. On arrival here, her chest x-ray suggested pulmonary edema as did a CT scan of the chest. Hospitalization was recommended to initiate intravenous diuretics. The patient has never experienced congestive failure in the past. She did have a cardiac catheterization performed in November 2019 which showed no evidence of coronary artery disease. Currently, patient is resting comfortably in bed without complaints. She is improved significantly with intravenous diuretics. Past medical and surgical history 1. Hypertension 2. Hypercholesterolemia 3. Normal coronary arteries-November 2019 4. Hypothyroidism 5. Right lower extremity DVT-2010 6. Pulmonary embolism-2010 7. GERD 8. Irritable bowel syndrome 9. Obstructive sleep apnea 10. Chronic low back pain 11. History of TIA 12. Depression 13. Bilateral TKR 14. Left ankle ORIF-November 2019 Social history , lives with her elderly . Daughter and son-in-law live 4 miles away Retired dental financial coordinator No tobacco alcohol Family history Mother at 52 from an [place] Father in his mid 70s from unknown causes One of her sisters had 3 MIs Review of systems A 10 review systems was undertaken and negative except for that described above. Allergies Allergy/AdvReac Type Severity Reaction Status Date / Time haemophilus b polysac Allergy Intermediate FLU-LIKE Verified 03/13/24 23:13 conj-tetanus SYMPTOMS Penicillins Allergy Intermediate FLU-LIKE Verified 03/13/24 23:13 SYMPTOMS ranitidine [From Zantac] AdvReac Severe RESPIRATORY Verified 03/13/24 23:13 FAILURE/CARDIAC ARREST Home Medications Medication Instructions Recorded Confirmed Type clotrimazole-betamethasone 1 1 applic topical BID PRN Skin 12/15/21 03/13/24 History %-0.05 % topical cream Irritation cyclobenzaprine 5 mg tablet 5 mg PO TID PRN MUSCLE SPASMS 12/15/21 03/13/24 History duloxetine 60 mg capsule,delayed 60 mg PO DAILY 12/15/21 03/13/24 History release oxycodone 5 mg tablet 5 mg PO Q6H PRN Back Pain 12/15/21 03/13/24 History valacyclovir 1 gram tablet 1,000 mg PO TID PRN Cold Sores 12/15/21 03/13/24 History amlodipine 5 mg-olmesartan 20 mg 1 tab PO DAILY #90 tabs 02/15/23 03/13/24 Rx tablet metoprolol succinate 100 mg 100 mg PO DAILY #90 tabs 03/22/23 03/13/24 Rx tablet,extended release 24 hr cholecalciferol (vitamin D3) 25 25 mcg PO DAILY 03/13/24 03/13/24 History mcg (1,000 unit) capsule (Vitamin D3) cyanocobalamin (vitamin B-12) 1,000 mcg PO DAILY 03/13/24 03/13/24 History 1,000 mcg tablet (Vitamin B-12) Patient History Medical History Hyperlipidemia 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 Primary hypertension Hypothyroidism Social History Smoking Status: Never smoker Hx Alcohol Use: No Hx Substance Use: No Preferred Language: [place]ian Communication Ability: Effective Communication Ability Comment: Hard of hearing, reads lips Automatic Embroidery Machine Tender Required: No Beliefs That Will Affect Care: None Current Living Situation: Spouse Feels Safe at Home: Yes Assistive Devices: None Physical Exam Physical Exam: In general this is an obese white female no acute distress. HEENT exam is negative. Neck is supple with full carotid upstrokes. There are no carotid bruits. Jugular venous pressure is flat at 90. There is no thyromegaly. Cardiovascular exam reveals a regular rhythm with normal S1 and S2. Heart sounds are distant. No obvious murmurs. Lungs are clear without rales, rhonchi, or wheezes. Abdomen is soft and nontender without bruits. Extremities reveal intact radial artery pulses bilaterally. Trace pretibial edema is noted bilaterally. Results & Data Vital Signs (Past 12 Hours) Vital Signs Temp Pulse Pulse Resp BP Pulse Ox O2 Del Method 03/15/24 11:36 36.7 C 54 L 17 123/72 95 Room Air 03/15/24 08:27 Room Air 03/15/24 07:03 36.5 C 53 L 17 130/66 98 Nasal Cannula 03/15/24 07:00 58 L 03/15/24 02:41 36.6 C 60 18 127/67 97 Nasal Cannula O2 Flow Rate 03/15/24 11:36 03/15/24 08:27 03/15/24 07:03 1 03/15/24 07:00 03/15/24 02:41 2 Laboratory Results CBC notes hemoglobin 11.7, hematocrit 35.5, white count 11.3, and platelet count [id number]. Electrolytes note a sodium of 139, potassium 4.4, chloride 103, bicarb 29, BUN 27, creatinine 0.93, glucose of 169. Initial high sensitivity troponin was 5.5 with a follow-up value of 5.0. BNP was mildly elevated 152. TSH is normal at 3.5. Diagnostic Findings Echocardiogram notes normal left ventricular systolic function with ejection fraction of 60-65%. There was mild LVH and evidence of diastolic dysfunction. There was no valvular pathology. EKG notes sinus rhythm left ventricle hypertrophy and poor R-wave progression across the anterior precordium. Chest x-ray notes cardiomegaly and interstitial pulmonary edema. PG Care Time/CCT Total # of Minutes Spent Total Time Spent with Patient: Total time spent is greater than 50% in coordination of care (as documented) at patient's floor/unit and/or counseling patient: Coding Level of Care Code 87051 INT INP/OBS CARE 3/75MIN Diagnoses Acute on chronic diastolic CHF (congestive heart failure) I50.33 Hypertension I10
[2024-03-15] MEDS: METOPROLOL SUCC 50MG EXT REL TAB PO SCH (22:03)
[2024-03-16] MEDS: diphenhydrAMINE Capsule 25 MG CAP PO PRN (01:05)
[2024-03-16 06:45] LABS: Basophils # (auto) 0.02 K/uL (0.00-0.20); Basophils % (auto) 0.2 %; Hematocrit (blood only) 34.4 % (37.0-47.0); Hemoglobin 11.2 g/dl (12.0-16.0); Immature Granulocytes # (auto) 0.13 K/uL (0.01-0.20); Immature Granulocytes % (auto) 1.1 %; Lymphocytes # (auto) 1.75 K/uL (1.20-3.40); Lymphocytes % (auto) 15.1 %; Mean Corpuscular Hemoglobin 32.2 pg (25.0-34.0); Mean Corpuscular Hgb Conc 32.6 g/dL (32.0-36.0); Mean Corpuscular Volume 98.9 fL (80.0-100.0); Mean Platelet Volume 10.5 fL (9.4-12.4); Monocytes # (auto) 0.69 K/uL (0.11-0.59); Neutrophils % (auto) 77.6 %; Nucleated RBC # (auto) 0.02 K/uL (0.00-0.12); Nucleated RBC % (auto) 0.2 %; Platelet Count 467 K/uL (130-400); RDW Coefficient of Variation 13.2 % (11.5-14.5); RDW Standard Deviation 47.6 fL (36.4-46.3); Red Blood Count 3.48 M/uL (4.20-5.40); White Blood Count 11.59 K/ul (4.8-10.8)
[2024-03-16 06:51] LABS: BUN Creatinine Ratio 38.6 (10-20); Calcium 9.7 mg/dl (8.6-10.3); Creatinine Clr Calc Pharmacy 60.2 ml/min; Est GFR (African American) 80.5 ml/min; Est GFR (Non-African American) 69.5 ml/min; Potassium 4.2 mmol/L (3.5-5.1)
--- NOTE | 2024-03-16 12:47 | Hospitalist Progress Note ---
Date of Service March 16, 2024 Assessment & Plan (1) Dyspnea on exertion: (2) New onset of congestive heart failure: (3) Bronchitis: (4) Acute UTI: (5) Hypertension: (6) Hyperlipidemia: Plan Dyspnea on exertion/new onset CHF/bronchitis/history of COVID 19 7 weeks ago- Clinically patient looks reasonably good Acute New onset CHF preserved ejection fraction Acute congestive heart failure with preserved ejection fraction and diastolic dysfunction 2D echo showed preserved ejection fraction with grade 1 diastolic dysfunction The patient will be admitted to telemetry for serial cardiac enzymes, serial EKG's, cardiac rhythm monitoring and a 2-D echocardiogram with Dopplers. Currently on IV Lasix 20 mg twice daily, making good urine and negative fluid balance about 1.2 L overnight Monitor input and output, daily weight Continue metoprolol succinate 100 mg daily, and amlodipine-on losartan 04/17, 1 p.o. daily Bronchitis/history of COVID-19- Reports being positive for COVID-19 about 7 weeks ago, which would coincide with gradually worsening shortness of breath and dyspnea on exertion BioFire test negative Give dexamethasone 6 mg IV now, then 4 mg IV every morning and follow response DuoNebs every 2 hours as needed Urinary tract infection- Urine cultures negative for now Empiric ceftriaxone IV Stop antibiotics upon discharge Obstructive sleep apnea: Patient had nocturnal oximetry which showed desaturation overnight Upon discharge, will need a prescription for oxygen 2 L at night. Patient was supposed to follow-up with a and p mechanic given her history of obstructive sleep apnea, however she states she does not tolerate her CPAP Admission and Anticipated Discharge Date Admission Date: March 15, 2024 Subjective Patient seen and examined, states shortness of breath is much improved, patient feels overall better. Review of Systems Review of Systems: All systems reviewed are negative, apart from the ones contained in the history. Physical Exam Physical Exam: The patient is awake, alert and oriented 3, well developed and well nourished, normocephalic and atraumatic, lying in bed and in no acute distress. HEENT--PERRL, EOMI, mucous membranes and oropharynx mildly dry Neck--supple. No JVD. No bruits. Thyroid normal, trachea midline, no adenopathy. Heart--normal S1 and S2. No murmurs, rubs or gallops. Lungs--clear bilaterally, no respiratory distress, no accessory muscle use. Abdomen--normal bowel sounds and soft. Extremities--no cyanosis or clubbing. No edema. Dermatologic--normal skin turgor, normal color, no abnormal lymph nodes, no rash. Neurologic--cranial nerves II through XII grossly intact. Rheumatologic--normal range of motion. Psychiatric--normal affect. Results & Data Results & Data Vital Signs (Past 12 Hours) Vital Signs Temp Pulse Pulse Pulse Pulse Resp BP 03/16/24 11:40 98.1 F 103 H 18 129/70 03/16/24 10:04 03/16/24 08:07 97.7 F 101 H 18 123/74 03/16/24 07:18 53 L 03/16/24 04:55 58 L 03/16/24 03:02 50 L 03/16/24 03:00 03/16/24 02:12 97.9 F 59 L 18 128/64 03/16/24 01:30 60 Pulse Ox Pulse Ox Pulse Ox O2 Del Method O2 Del Method O2 Del Method O2 Flow Rate 03/16/24 11:40 92 Room Air 03/16/24 10:04 Nasal Cannula 2 03/16/24 08:07 95 Nasal Cannula 03/16/24 07:18 03/16/24 04:55 87 L Nasal Cannula 03/16/24 03:02 90 Room Air 03/16/24 03:00 93 Room Air 03/16/24 02:12 93 Room Air 03/16/24 01:30 O2 Flow Rate 03/16/24 11:40 03/16/24 10:04 03/16/24 08:07 03/16/24 07:18 03/16/24 04:55 2 03/16/24 03:02 03/16/24 03:00 03/16/24 02:12 03/16/24 01:30 PG Care Time/CCT Total # of Minutes Spent Total Time Spent with Patient: Total time spent is greater than 50% in coordination of care (as documented) at patient's floor/unit and/or counseling patient: Coding Level of Care Code 70804 SUB INP/OBS CARE 2/35MIN Diagnoses Dyspnea on exertion R06.09 New onset of congestive heart failure I50.9 Bronchitis J40 Acute UTI N39.0 Hypertension I10 Hyperlipidemia E78.5 Time Spent (min) 35
[2024-03-16] MEDS: PANTOprazole 40 MG TAB PO STA (18:09)
[2024-03-16] MEDS: MELATONIN 3 MG TAB PO SCH (20:12)
[2024-03-17 06:32] LABS: Hematocrit (blood only) 35.7 % (37.0-47.0); Hemoglobin 11.5 g/dl (12.0-16.0); Mean Corpuscular Hemoglobin 31.8 pg (25.0-34.0); Mean Corpuscular Hgb Conc 32.2 g/dL (32.0-36.0); Mean Corpuscular Volume 98.6 fL (80.0-100.0); Mean Platelet Volume 10.2 fL (9.4-12.4); Platelet Count 466 K/uL (130-400); RDW Coefficient of Variation 13.2 % (11.5-14.5); RDW Standard Deviation 48.1 fL (36.4-46.3); Red Blood Count 3.62 M/uL (4.20-5.40); White Blood Count 11.19 K/ul (4.8-10.8)
--- NOTE | 2024-03-17 13:40 | Hospitalist Progress Note ---
Date of Service March 17, 2024 Assessment & Plan (1) Dyspnea on exertion: (2) New onset of congestive heart failure: (3) Bronchitis: (4) Acute UTI: (5) Hypertension: (6) Hyperlipidemia: Plan Dyspnea on exertion/new onset CHF/bronchitis/history of COVID 19 7 weeks ago- Clinically patient looks reasonably good Acute New onset CHF preserved ejection fraction Acute congestive heart failure with preserved ejection fraction and diastolic dysfunction 2D echo showed preserved ejection fraction with grade 1 diastolic dysfunction The patient will be admitted to telemetry for serial cardiac enzymes, serial EKG's, cardiac rhythm monitoring and a 2-D echocardiogram with Dopplers. Currently on IV Lasix 20 mg twice daily, although overnight and positive fluid value to 400 cc. The need for fluid restriction was reemphasized Monitor input and output, daily weight Continue metoprolol succinate 100 mg daily, and amlodipine-on losartan 04/17, 1 p.o. daily Bronchitis/history of COVID-19- Reports being positive for COVID-19 about 7 weeks ago, which would coincide with gradually worsening shortness of breath and dyspnea on exertion BioFire test negative Had good response to dexamethasone, this has been discontinued. DuoNebs every 2 hours as needed Urinary tract infection- Urine cultures negative for now Empiric ceftriaxone IV Stop antibiotics upon discharge Obstructive sleep apnea: Patient had nocturnal oximetry which showed desaturation overnight Upon discharge, will need a prescription for oxygen 2 L at night. Patient was supposed to follow-up with psychiatric social worker given her history of obstructive sleep apnea, however she states she does not tolerate her CPAP Hopeful discharge tomorrow morning Admission and Anticipated Discharge Date Admission Date: March 15, 2024 Subjective Patient seen and examined, states shortness of breath is much improved, patient feels overall better. Review of Systems Review of Systems: All systems reviewed are negative, apart from the ones contained in the history. Physical Exam Physical Exam: The patient is awake, alert and oriented 3, well developed and well nourished, normocephalic and atraumatic, lying in bed and in no acute distress. HEENT--PERRL, EOMI, mucous membranes and oropharynx mildly dry Neck--supple. No JVD. No bruits. Thyroid normal, trachea midline, no adenopathy. Heart--normal S1 and S2. No murmurs, rubs or gallops. Lungs--clear bilaterally, no respiratory distress, no accessory muscle use. Abdomen--normal bowel sounds and soft. Extremities--no cyanosis or clubbing. No edema. Dermatologic--normal skin turgor, normal color, no abnormal lymph nodes, no rash. Neurologic--cranial nerves II through XII grossly intact. Rheumatologic--normal range of motion. Psychiatric--normal affect. Results & Data Results & Data Vital Signs (Past 12 Hours) Vital Signs Temp Pulse Pulse Resp BP Pulse Ox O2 Del Method 03/17/24 11:13 98.1 F 88 19 117/67 97 Room Air 03/17/24 08:46 53 L 03/17/24 08:42 Room Air 03/17/24 07:06 97.5 F L 53 L 16 143/76 H 97 Nasal Cannula 03/17/24 03:23 97.7 F 58 L 18 153/75 H 98 Nasal Cannula O2 Flow Rate 03/17/24 11:13 03/17/24 08:46 03/17/24 08:42 03/17/24 07:06 1 03/17/24 03:23 1 PG Care Time/CCT Total # of Minutes Spent Total Time Spent with Patient: Total time spent is greater than 50% in coordination of care (as documented) at patient's floor/unit and/or counseling patient: Coding Level of Care Code 06197 SUB INP/OBS CARE 2/35MIN Diagnoses Dyspnea on exertion R06.09 New onset of congestive heart failure I50.9 Bronchitis J40 Acute UTI N39.0 Hypertension I10 Hyperlipidemia E78.5 Time Spent (min) 35
[2024-03-18] MEDS: CYCLOBENZAPRINE HCL 5 MG TAB PO PRN (09:41)
--- NOTE | 2024-03-18 12:27 | Discharge Summary ---
Date of Service March 18, 2024 Admission HPI Per Admitting Provider The patient is a 73-year-old female with a past medical history including history of kidney stones, renal lesion, family history of CAD, chest pain syndrome, dyspnea exertion, lower extremity edema, hyperlipidemia, hypertension, muscle spasms, chronic back pain syndrome and cold sores. The patient presents to the emergency department symptoms as noted above. Patient does report having had a COVID 19 infection about 7 weeks ago. Principal Diagnosis Acute congestive heart failure, UTI Discharge Exam The patient is awake, alert and oriented 3, well developed and well nourished, normocephalic and atraumatic, lying in bed and in no acute distress. HEENT--PERRL, EOMI, mucous membranes and oropharynx mildly dry Neck--supple. No JVD. No bruits. Thyroid normal, trachea midline, no adenopathy. Heart--normal S1 and S2. No murmurs, rubs or gallops. Lungs--clear bilaterally, no respiratory distress, no accessory muscle use. Abdomen--normal bowel sounds and soft. Extremities--no cyanosis or clubbing. No edema. Dermatologic--normal skin turgor, normal color, no abnormal lymph nodes, no rash. Neurologic--cranial nerves II through XII grossly intact. Rheumatologic--normal range of motion. Psychiatric--normal affect. Discharge Data Allergies Allergy/AdvReac Type Severity Reaction Status Date / Time haemophilus b polysac Allergy Intermediate FLU-LIKE Verified 03/13/24 23:13 conj-tetanus SYMPTOMS Penicillins Allergy Intermediate FLU-LIKE Verified 03/13/24 23:13 SYMPTOMS ranitidine [From Zantac] AdvReac Severe RESPIRATORY Verified 03/13/24 23:13 FAILURE/CARDIAC ARREST Consultations 03/14/24 00:53 ED Decision to Admit Stat 03/14/24 16:49 Consult Cardiology Routine Ordered Studies 03/13/24 22:24 CT Abd and Pelvis [CT abd pelvis IV con only] Stat CT angio chest PE protocol Stat Hospital Course (1) Dyspnea on exertion: (2) New onset of congestive heart failure: (3) Bronchitis: (4) Acute UTI: (5) Hypertension: (6) Hyperlipidemia: Plan Dyspnea on exertion/new onset CHF/bronchitis/history of COVID 19 7 weeks ago- Clinically patient looks reasonably good Acute New onset CHF preserved ejection fraction Acute congestive heart failure with preserved ejection fraction and diastolic dysfunction 2D echo showed preserved ejection fraction with grade 1 diastolic dysfunction The patient will be admitted to telemetry for serial cardiac enzymes, serial EKG's, cardiac rhythm monitoring and a 2-D echocardiogram with Dopplers. Discharge home on p.o. Lasix 40 mg daily with potassium supplements Reduce home dose of metoprolol to 50 mg daily from 100 given relative bradycardia Follow-up with cardiology Bronchitis/history of COVID-19- Reports being positive for COVID-19 about 7 weeks ago, which would coincide with gradually worsening shortness of breath and dyspnea on exertion BioFire test negative Had good response to dexamethasone, this has been discontinued. DuoNebs every 2 hours as needed Urinary tract infection- Urine cultures negative for now Completed course of IV antibiotics. Obstructive sleep apnea: Patient had nocturnal oximetry which showed desaturation overnight Upon discharge, will need a prescription for oxygen 2 L at night. Patient was supposed to follow-up with owner operator given her history of obstructive sleep apnea, however she states she does not tolerate her CPAP Hypoxia: Mostly nocturnal hypoxia Discharge home on oxygen 2 L at night Discharge home Total Time Total Time Spent Total Time Spent (In Minutes): 35 Discharge Plan Discharge Items Patient Disposition: Home - Self-Care Reason For Visit: PROGRESSIVE SOB/POTTS, CHF/BRONCHITIS Discharge Diagnosis: acute CHF exacerbation Condition on Discharge: Good Activity: Resume your previous activity Non-emergency contact: Primary Care Provider, Channel Layer and Biomedical Engineering Supervisor Call non-emergency contact if: you have any medication questions Follow-up/Referrals: Jurgen Garrett DO [Primary Care Provider] - Diet: Heart Healthy and Low Sodium (2gm) Addtl Attending Provider Instructions: please follow up with your Biomedical Engineering Supervisor and sound editor and PCP Pending Studies at Discharge: No Stand-Alone Forms: [employer], Smoking Cessation Medications and DC Order Prescriptions: New metoprolol succinate [Toprol XL] 50 mg tablet extended release 24 hr 50 mg PO DAILY Qty: 30 0RF furosemide [Lasix] 40 mg tablet 40 mg PO DAILY Qty: 30 0RF potassium chloride 10 mEq capsule, extended release 10 meq PO DAILY Qty: 30 0RF Continued clotrimazole-betamethasone 1-0.05 % cream 1 applic topical BID PRN (Reason: Skin Irritation) cyclobenzaprine 5 mg tablet 5 mg PO TID PRN (Reason: MUSCLE SPASMS) duloxetine 60 mg capsule,delayed release(DR/EC) 60 mg PO DAILY oxycodone 5 mg tablet 5 mg PO Q6H PRN (Reason: Back Pain) valacyclovir 1 gram tablet 1,000 mg PO TID PRN (Reason: Cold Sores) amlodipine-olmesartan 5-20 mg tablet 1 tab PO DAILY Qty: 90 3RF cyanocobalamin (vitamin B-12) [Vitamin B-12] 1,000 mcg Tablet 1,000 mcg PO DAILY cholecalciferol (vitamin D3) [Vitamin D3] 25 mcg (1,000 unit) Capsule 25 mcg PO DAILY Discontinued metoprolol succinate 100 mg tablet extended release 24 hr 100 mg PO DAILY Qty: 90 3RF Discharge Orders: Discharge Order (Routine); Ordered 03/18/24 Ordered By: Sindhu Rios Admission Data Admit Date/Time: 03/15/24 12:56 Attending Provider: Sindhu Rios Admit Provider: Richy Sevilla Primary Care Provider: Jurgen Garrett Other Providers: Richy Sevilla; Sam Fernandez Coding Level of Care Code 18213 INP/OBS DISCH >30 MIN Diagnoses Dyspnea on exertion R06.09 New onset of congestive heart failure I50.9 Bronchitis J40 Acute UTI N39.0 Hypertension I10 Hyperlipidemia E78.5 Time Spent (min) 35
--- NOTE | 2024-03-18 13:01 | Cardiology Progress Note ---
Date of Service March 18, 2024 Assessment & Plan (1) New onset of congestive heart failure: (2) Hypertension: (3) Bradycardia: Plan 1. Congestive heart failure: She has HFpEF, she does not have a terribly thick ventricle and her diastolic function is only graded as grade 1. I am not sure if her heart failure is primarily cardiac or dietary. On questioning her and her daughter it sounds as though it may have been somewhat gradual in onset, possibly since last Thanks[place] when she noticed increased dyspnea on exertion, with recent exacerbation. I am hopeful that she will not have a lot of difficulty with heart failure in the future now that she knows about fluid res triction (she was using a lot of fluid due to the kidney stones) and I discussed fluid management with her and her daughter. She probably should be sent home on a diuretic but may end up needing it as needed. She should follow a reasonable salt restriction but it sounds as though she is doing that already. She should see Janae Dutton in our office in 1 to 2 weeks to make sure she is on track. 2. Hypertension: Her blood pressure is good today, she has had an increase in her blood pressure medications. Her beta-saul has been increased and her heart rate is fairly slow. 3. Bradycardia: Her heart rate is slow, I have not adjusted her medications since she is about ready to go home and that could be done as an outpatient. Perhaps she should not be on high-dose beta-blockade if some other medication can be used instead, she does not have left ventricular hypertrophy and we do not have evidence of coronary artery disease. Admission and Anticipated Discharge Date Admission Date: March 15, 2024 Subjective She is feeling well today, she was able to ambulate around the hallway twice without getting short of breath. She feels her breathing is much better although she does not notice any change in her legs, she did not have edema on presentation. Physical Exam Physical Exam: Constitutional: Alert, cooperative and in no distress. She is overweight. HEENT: Unremarkable Neck: No jugular venous distention, carotid pulses are normal and equal bilaterally without bruits. Pulmonary: Clear to auscultation bilaterally. Cardiac: Regular slow rhythm with no murmur, gallop or rub. Abdomen: Soft, nontender with normal bowel sounds. Extremities: No edema. Distal pulses intact. Neurologic: No focal findings. Gait is steady. Skin: No rash, ecchymoses or petechiae. Results & Data Vital Signs (Past 12 Hours) Vital Signs Temp Pulse Pulse Resp BP Pulse Ox Pulse Ox 03/18/24 10:49 36.7 C 55 L 18 125/77 96 03/18/24 10:07 36.2 C L 48 L 103 H 18 147/80 H 99 03/18/24 07:12 36.2 C L 48 L 18 147/80 H 99 03/18/24 03:00 97 03/18/24 02:28 36.4 C L 51 L 18 150/70 H 97 O2 Del Method O2 Del Method O2 Flow Rate O2 Flow Rate 03/18/24 10:49 Room Air 03/18/24 10:07 03/18/24 07:12 Nasal Cannula 2 03/18/24 03:00 Nasal Cannula 2 03/18/24 02:28 Nasal Cannula 1 Laboratory Results Intake and Output 03/17/24 03/18/24 03/18/24 22:59 06:59 14:59 Intake Total 50 / 530 Output Total 600 / 2550 550 / 2550 Balance -550 / -2019 -550 / -2019 Intake: IV 50 / 50 cefTRIAXone SODIUM 1,000 mg In 50 / 50 Dextrose 5 % Mini-B 50 ml @ 100 mls/hr IV Q24H [facility] Rx#: [id number] Output: Urine 600 / 2550 550 / 2550 Other: Weight 93.6 kg 93.6 kg Weight Measurement Method Built in [facility] Patient Weight 03/19/24 06:59 Weight 93.6 kg Diagnostic Findings Telemetry: Sinus bradycardia predominantly, most the time the heart rate is in the 40s and 50s, up to 80 bpm but infrequently. PG Care Time/CCT Total # of Minutes Spent Total Time Spent with Patient: Total time spent is greater than 50% in coordination of care (as documented) at patient's floor/unit and/or counseling patient: Coding Level of Care Code 04026 SUB INP/OBS CARE 2/35MIN Diagnoses New onset of congestive heart failure I50.9 Primary hypertension I10 Hypertension type: primary hypertension Bradycardia R00.1 (2) Hypertension Hypertension type: primary hypertension Qualified Code(s): I10 - Essential (primary) hypertension
== END 2024-03-18 14:00 | disposition home or self-care (01) | DRG 291 ==
LOC: ED 21:29 → EDINP 21:29 → SUATTDRO 03-14 01:44 → 4W 03-14 03:51